=== PATIENT | male | born 1950 | race Caucasian/White ===

== ENCOUNTER 2021-02-12 07:19 | Inpatient (IN) | payer OTHER ==
[~2021-02-12] VITALS: Ht 182.9 cm; Wt 85.3 kg
[2021-02-16 09:05] VITALS: BP 152/88
[2021-02-16 12:58] VITALS: BP 134/82
--- NOTE | 2021-02-16 13:28 | NUR ---
cm spk with pt re d/c planning. pt indicated he lives home with family. he is independent w/cares, drives a vehicle. pt has 1 step to enter home. and 8 stairs inside, 4 fueuh-stihzhty-6 steps. pt denies hx with home health or snf, but pt is open to hh at [facility]. cm to cont to follow.
[2021-02-16 14:30] VITALS: BP 131/85
[2021-02-16 17:02] VITALS: BP 128/81
--- NOTE | 2021-02-16 19:50 | NUR ---
Pt arrived to floor from recovery room around 1100 in stable conditon. Admission hx,assessment and care plan completed.Hospitalist paged for consult but no response.channel process supervisor notified and she sent message to Dr Chaney. Pt tolerated meds and diet.Family here to visit,updates given.No verbal c/o. Pt up to bathroom with walker. Report off to noc rn.
[2021-02-16 19:56] VITALS: BP 129/80
[2021-02-17 00:24] VITALS: BP 157/90
--- NOTE | 2021-02-17 03:34 | NUR ---
ASSESSED AT START OF SHIFT, PT A&OX4. RATES PAIN A 5/10 HYDROCODONE GIVEN FOR PAIN. PT UP WITH ASSISTX1 WITH A WALKER AND GB TO THE BATHROOM. PT WAS ABLE TO AMBULATE THE UNIT THIS EVENING. IV INTACT AND FLUIDS INFUSING. DENIES N/V. AYDEN DRESSING INTACT AND ICE BAG PROVIDED FOR COMFORT. SCD'S, TEDHOSE IN PLACE. WILL CONT WITH POC TILL EOS.
[2021-02-17 05:12] LABS: HEMATOCRIT 39.2 % (42.0-52.0); MCH 32.2 pg (26.0-34.0); MCHC 33.1 g/dL (28.0-37.0); MCV 97.3 fL (80.0-100.0); RBC 4.03 mil/uL (4.50-6.00); RDW 14.5 % (10.5-14.5); WBC 12.5 thou/uL (4.0-11.0)
[2021-02-17 07:10] VITALS: BP 131/83
--- NOTE | 2021-02-17 08:05 | O ---
[facility] [place] [address] OPERATIVE REPORT Name: EDER ORTIZ V Room #: 439-P ADM IN M.R.#: [id number] Admission: 02/16/21 Attend Phys: Delano Figueroa MD Discharge: Date of : 50 Report #: [id number] THIS REPORT FOR: cc: Steve Barreto MD, Ralph R. MD Clymer, David J. MD ~ DOC #: [id number] Delano Figueroa MD DATE OF SERVICE: 02/16/2021 PREOPERATIVE DIAGNOSIS: End-stage degenerative arthritis, left hip. POSTOPERATIVE DIAGNOSIS: End-stage degenerative arthritis, left hip. PROCEDURE: Left total hip arthroplasty. SURGEON: Delano Figueroa MD. INDICATIONS: This slender, fit and active 70-year-old gentleman complains of severe left hip pain and limited range of motion. Clinical exam and x-rays confirm rather severe end-stage degenerative arthritis with loss of joint space and significant spurring. He has tried conservative measures without benefit. He has decided to go ahead with total hip replacement. He has been evaluated by his primary care physician and his mobile heavy equipment mechanic and noted to have stable atrial fibrillation with a controlled rate. They feel he is safe for elective anesthesia and surgery. DESCRIPTION OF PROCEDURE: The patient was taken to the operating room, was placed under general anesthesia. Prophylactic intravenous antibiotics were administered. He was turned to the right lateral decubitus position. The left hip, thigh and leg were meticulously prepped and draped. A slightly curving posterolateral skin incision was made. This was carried through the gluteus, exposing the posterior aspect of the hip joint. The short external rotators and capsule were taken down and preserved and then tagged with several #2 FiberWire sutures. The hip was dislocated posteriorly with some difficulty as there was marked spurring around the acetabulum and femoral neck. The spurs were debrided and good visualization was established. Femoral neck osteotomy was performed. The canal was prepared using reamers and hand broaches. The Mcconnell and Nephew hip system was utilized. The femur seemed best suited for a size 14 standard femoral stem. The calcar was trimmed down to an appropriate level. The trial component was removed and attention directed to the acetabulum. Adequate exposure was established and the acetabulum was sequentially reamed, gradually advancing to a 54 mm reamer. A Mcconnell and Nephew 54 mm 3-hole StikTite acetabular shell was selected. This was impacted into the acetabulum in alignment with his true acetabulum, which placed this at about 45 degrees off of vertical and 20-25 degrees of anteversion. It seated nicely and appeared to be [address] [address] OPERATIVE REPORT Name: EDER ORTIZ V Room #: 439-P [facility] IN M.R.#: [id number] Admission: 02/16/21 Attend Phys: Delano Figueroa MD Discharge: Date of : 50 Report #: [id number] secure. In addition, three cancellous screws were placed through the apical holes, engaging good periacetabular bone adding to stability. A 36 x 54 mm polyethylene liner was then selected and impacted into the cup and seated nicely and appeared to be secure. The 20-degree elevated rim was placed at about the 10 o'clock posterior position. Attention was then directed back to the femoral side. A size 14 Synergy porous femoral component was impacted into position. It seated nicely in about 15 degrees of anteversion. Trial reduction was performed and the hip seemed best suited for a +4 mm neck length. This resulted in full hip extension, although he is slightly tight in hyperextension and rotation. The hip seemed stable. The trial component was removed and the permanent Mcconnell and Nephew size 14 Synergy porous stem was inserted. The 4 mm x 36 mm cobalt chrome head was impacted on the Yang taper. The hip was reduced. Alignment, range of motion, stability and leg length were assessed and felt to be satisfactory. The wound was copiously irrigated. Good hemostasis was established. The capsule and short external rotators were repaired back to bone using FiberWire sutures previously placed. This resulted in satisfactory, additional hip stability. A single Hemovac was left in the wound exiting through a separate stab incision. The fascia was closed with multiple #1 Vicryl sutures. The adipose tissues and subcutaneous tissues were closed with 0 Monocryl. The skin was closed with skin cornell. A sterile dressing was applied. The patient was awakened and returned to recovery room in good condition. MD CARLOS Elaine/INES <ELECTRONICALLY SIGNED> By: Delano Figueroa MD 02/17/21 0805 [id number] Delano Figueroa MD /nt
[2021-02-17 08:21] LABS: CREATININE 0.9 mg/dL (0.7-1.3); MAGNESIUM 2.1 mg/dL (1.8-2.4); POTASSIUM 4.9 mmol/L (3.5-5.1)
--- NOTE | 2021-02-17 09:34 | NUR ---
on-going assessment: CM REVIEWED CHART AND SPOKE WITH PATIENT AT THE BEDSIDE. PT REPORTS THAT HE DOES NOT HAVE ANY DME AT HIS HOME. CM STATED WE WILL SEE HOW PATIENT DOES WITH THERAPY AND CM CAN HELP ASSIST WITH AN EQUIPMENT HE MAY NEED. PT STATING HE IS WANTING HOME HEALTH CARE AT DISCHARGE. PT REPORTS HE HAS NO PREFERENCE OF HH AGENCY. CM FAXED REFERRAL TO [facility]. PT IS TO CONTINUE TO WORK WITH THERAPY. CM WILL CONTINUE TO FOLLOW TO ASSIST NEEDED.
--- NOTE | 2021-02-17 13:35 | NUR ---
ASSUMED PT CARE THIS AM. PATIENT A&OX4, ABLE TO MAKE NEEDS KNOWN. PATIENT HAS A AYDEN DRESSING TO LEFT HIP. REPORTED PAIN THIS AM, RESPONDED WELL TO PAIN MEDS GIVEN PER EMAR. IV PATENT, SALINE LOCKED. PATIENT USING AN ICE BAG ON HIS HIP NEEDED. PATIENT REMAINS CONTINENT, USING A URINAL AND AMBULATORY TO THE BATHROOM NEEDED. PATIENT TOLERATING DIET WELL. PATIENT IS ON ROOM AIR. DENIES ANY NUMBNESS, TINGLING, OR NAUSEA. FALL PRECAUTIONS ARE IN PLACE, CALL LIGHT WITHIN REACH.
[2021-02-17 15:52] VITALS: BP 103/58
[2021-02-17 15:54] VITALS: BP 103/58
[2021-02-17 19:12] VITALS: BP 110/73
--- NOTE | 2021-02-18 00:37 | NUR ---
ASSESSED AT STRAT OF SHIFT. PT A&OX4. RATES PAIN 04/04. MEDICATION GIVEN. SEE EMAR. PT UP WITH SBA TO THE BATHROOM WALKS WELL. AYDEN DRESSING, SCD'S AND TEDHOSE IN PLACE. CALL LIGHT AT REACH AND PT ANTICIPATING DC TOMORROW. WILL CONT TO MONITOR.
[2021-02-18 04:09] VITALS: BP 142/95
[2021-02-18 06:05] LABS: BASOPHILS 0.4 % (0.0-2.0); EOSINOPHILS 0.2 % (0.0-3.0); HEMATOCRIT 38.2 % (42.0-52.0); HEMOGLOBIN 12.9 gm/dL (14.0-18.0); LYMPHOCYTES 19.8 % (24.0-44.0); MCH 32.7 pg (26.0-34.0); MCHC 33.6 g/dL (28.0-37.0); MCV 97.2 fL (80.0-100.0); MONOCYTES 13.5 % (1.0-8.0); PLATELET COUNT 163 thou/uL (150-400); POLYS 66.1 % (36.0-66.0); RBC 3.94 mil/uL (4.50-6.00); RDW 14.4 % (10.5-14.5); WBC 10.6 thou/uL (4.0-11.0)
[2021-02-18 06:27] LABS: CALCIUM 8.7 mg/dL (8.5-10.1); CREATININE 0.9 mg/dL (0.7-1.3)
[2021-02-18 08:17] VITALS: BP 142/95
[2021-02-18 08:25] VITALS: BP 130/84
--- NOTE | 2021-02-18 10:51 | NUR ---
Assumed care of pt at 0700. Pt a&ox4. SBA with gaitbelt and walker. Pain controlled with prn pain meds. Possible d/c today to home. Waiting on walker to be delivered. Call light within reach. Will continue to monitor.
[2021-02-18 10:57] VITALS: BP 142/95
[2021-02-18 11:02] VITALS: BP 142/95
--- NOTE | 2021-02-18 13:15 | NUR ---
on-going assessment: CM REVIEWED CHART AND SPOKE WITH PATIENT. [facility] HAS ACCEPTED PATIENT AND WAS NOTIFIED OF DISCHARGE TODAY. CM FAXED DISCHARGE ORDERS AND CONFIRMED THEY RECEIVED IT. PT WAS ALSO NEEDING A WALKER FOR DISCHARGE AND HAS NO PREFERENCE OF DME COMPANY. [facility] [employer] WAS NOTIFIED AND DELIVERED A WALKER TO PATIENTS ROOM. PT WAS CLEARED TO DISCHARGE HOME TODAY BY THERAPY.
[2021-02-18 13:43] VITALS: BP 142/95
--- NOTE | 2021-02-19 07:56 | D ---
[facility] [place] [address] DISCHARGE SUMMARY Name: EDER ORTIZ V Room #: 439-P [facility] IN M.R.#: [id number] Admission: 02/16/21 Attend Phys: Delano Figueroa MD Discharge: 02/18/21 Date of : 50 Report #: [id number] THIS REPORT FOR: cc: Steve Barreto MD, Ralph R. MD Clymer,Delano Wild MD ~ DOC #: [id number] Delano Figueroa MD DATE OF SERVICE: 02/18/2021 DATE OF ADMISSION: 02/16/2021 DATE OF DISCHARGE: 02/18/2021 FINAL DIAGNOSES: 1. End-stage degenerative arthritis, left hip. 2. Hypertension. 3. Well controlled atrial fibrillation on chronic anticoagulation. OPERATIONS AND PROCEDURES: Left total hip replacement. HISTORY: This 70-year-old gentleman is slender, fit and active. He is generally healthy, but has recently been diagnosed with stable and well controlled atrial fibrillation. He has mild hypertension, but no other significant medical problems. His left hip pain has been severe and progressive with findings consistent with severe end-stage degenerative arthritis. He has elected to go ahead with left total hip replacement. HOSPITAL COURSE: The patient was admitted and taken to the operating room on 02/16. He underwent left total hip replacement, which he tolerated quite nicely. Postoperatively, his course has been largely unremarkable. He is advanced to a regular diet and is doing well on oral pain medication. His hypertension is well controlled. His preexisting chronic atrial fibrillation is also well controlled with a satisfactory rate and no cardiac symptoms. The hip x-rays look good. The wound and dressing look fine. He has made good progress with physical therapy and has advanced to independent ambulation and stairs using a walker for protection. The patient and are anxious for hospital discharge today. We will plan for some visiting therapy at home. DISCHARGE MEDICATIONS: Include amlodipine 5/40 one tablet daily, Eliquis 5 mg b.i.d., metoprolol 25 mg b.i.d., multivitamin once every day, hydrocodone 5 mg q.4 hours p.r.n. for pain. He will continue with a regular diet and continue with moderate activity with visiting therapy at home for assistance. I will plan to see him back in my office in one week for followup. Delano Figueroa MD [facility]/[address] [address] DISCHARGE SUMMARY Name: EDER ORTIZ V Room #: 439-P [facility] IN M.R.#: [id number] Admission: 02/16/21 Attend Phys: Delano Figueroa MD Discharge: 02/18/21 Date of : 50 Report #: [id number] <ELECTRONICALLY SIGNED> By: Delano Figueroa MD 02/19/21 0756 [id number] [id number] Delano Figueroa MD /nt
== END 2021-02-18 14:28 | disposition home health service (06) | DRG 470 ==
LOC: PRE → OR 07:19 → EDSTATUS 07:20 → PRE 11:40 → TBA 02-16 06:32 → 4S 02-16 06:32 → PRE 02-16 08:44 → 4S 02-16 10:59 → PRE 02-16 13:07 → 4S 02-18 14:28
PROVIDERS: Nurse Practitioner; ADMIT Orthopaedic Surgery; ATTEND Orthopaedic Surgery
PROC: 0SRB01A Replacement of Left Hip Joint with Metal Synthetic Substitute, Uncemented, Open Approach (ICD-10-PCS; principal; 2021-02-16)
DX: M16.12 Unilateral primary osteoarthritis, left hip (principal); I48.20 Chronic atrial fibrillation, unspecified; I10 Essential (primary) hypertension
CPT/HCPCS: 10102; 50010; 50101; 50382; 50414; 51412; 53000; 53367; 56521; 56525; 56530; 57095; 57103; 62110; 62900; 70005

== ENCOUNTER → 2021-02-12 | Outpatient (CLI) | payer OTHER ==
[~2021-02-12] MED LIST: AMLODIPINE-BEN1 EAC4 PO; ELIQUIS5 MG PO; METOPROLOL TART25 MG PO; SUPER THERAVIT1 EACH PO; VIAGRA100 MG PO
[2021-02-12 09:45] LABS: HEMATOCRIT 46.9 % (42.0-52.0); HEMOGLOBIN 15.8 gm/dL (14.0-18.0); MCH 32.6 pg (26.0-34.0); MCHC 33.7 g/dL (28.0-37.0); MCV 96.6 fL (80.0-100.0); RBC 4.85 mil/uL (4.50-6.00); RDW 14.3 % (10.5-14.5); URINE BILIRUBIN NEGATIVE (Negative); URINE BLOOD NEGATIVE (Negative); URINE CLARITY CLEAR; URINE COLOR YELLOW; URINE GLUCOSE-RANDOM* NEGATIVE (Negative); URINE KETONES NEGATIVE (Negative); URINE LEUKOCYTES-REFLEX NEGATIVE (Negative); URINE NITRITE-REFLEX NEGATIVE (Negative); URINE PROTEIN (DIPSTICK) NEGATIVE (Negative); URINE UROBILINOGEN 0.2 E.U./dl (0.2-1.0); WBC 6.2 thou/uL (4.0-11.0)
[2021-02-12 09:57] LABS: ALBUMIN 4.3 g/dL (3.4-5.0); CALCIUM 9.5 mg/dL (8.5-10.1); CREATININE 1.1 mg/dL (0.7-1.3); POTASSIUM 4.2 mmol/L (3.5-5.1)
[2021-02-12 10:00] LABS: INR 1.04; PROTIME 11.3 Seconds (10.5-12.1)
== END ==
LOC: LAB 02-06 10:54 → PAC 02-06 10:58
PROVIDERS: Orthopaedic Surgery; ATTEND Student in an Organized Health Care Education/Training Program
DX: Z01.812 Encounter for preprocedural laboratory examination (principal); Z20.822 Contact with and (suspected) exposure to COVID-19